=== PATIENT | male | born 1965 | race Caucasian/White ===

== ENCOUNTER 2019-05-04 08:42 | Emergency (ER) | payer SELFPAY ==
[2019-05-04 08:44] VITALS: BP 166/105; PULSE 84; RESP 18; TEMP 36.4; O2SAT 97
--- NOTE | 2019-05-04 08:44 | ED.GENADUL_ITS ---
Discharge Plan Disposition Patient Disposition: HOME Condition: Good Discharge Details Chief Complaint: EyeProblem Clinical Impression: Abrasion, corneal Primary Care Provider: [facility] ED Provider: Argelia Coker Home Meds and New Rx's Prescriptions: Continued lisinopril 10 mg Tablet 10 mg PO DAILY RF: 0 Discharge Instructions Instructions: Erythromycin (Into the eye), Corneal Abrasion (ED) Additional Instructions: No foreign body was seen in your eye today. However, you do have corneal abrasion to the right side of your pupil. Please apply the erythromycin ointment as was instructed by nursing staff 4 times daily for the next 5 days. Please follow-up with local local director hris in the next 2 days for reevaluation. If you develop pain, change in vision, discharge or other new/worsening symptoms please seek care urgently once again. Medical Decision Making Patient is a 53-year-old male presenting today with chief complaint of left eye pain. Reports that prior to arrival he was cutting a metal pipe and feels that he got a foreign body into the left eye. States that he immediately washed the eye and believes he may have gotten a foreign body out continues to have mild foreign body sensation. Reports that his tetanus is not up-to-date. Denies any change in his vision. Does not wear contact lenses or corrective lenses. Does not have a routine director hris. Patient lives in [place]. On exam, patient has mild injection to the left eye. Fluorescein was used after everting the eyelids. Patient was examined with slit lamp. Patient has a 4 mm vertical corneal abrasion just to the right of the pupil. However, when are not dilated, it does not cross over into the pupil. No foreign body was noted. Remaining exam is normal. Patient was given first dose of erythromycin ointment and was instructed on how to apply this by nursing staff. He was given strict return precautions. Patient does not live in the area, he will call a local director hris . We discussed signs symptoms of infection when to seek care urgently once again. All of his questions and concerns were addressed and he is in agreement this plan. Tetanus was updated today. HPI General Mode of arrival: ambulatory . Date/Time Provider Initiated Documentation: 05/04/19 08:44 . Limitations to Documentation: no limitations . Information obtained by: patient and RN notes reviewed . History of Present Illness 53 year old M presents to the emergency department with the chief complaint of Foreign body left eye, described as mild (Reports the pain is largely resolved), Quality is described as burning, and is localized to the eyes. Patient reports no radiation. Patient started experiencing this minute(s) and it has been constant. No relieving factors improve symptom(s), No exacerbating factors reported . Patient notes no other symptoms.. Patient did receive the following treatments prior to arrival, none Related Data Home Medications Medication Instructions Recorded Confirmed lisinopril 10 mg PO DAILY 05/04/19 05/04/19 Allergies Allergy/AdvReac Type Severity Reaction Status Date / Time No Known Allergies Allergy Unverified 05/04/19 08:48 Review of Systems Constitutional Constitutional: Reports as per HPI, Denies chills, Denies fatigue, Denies fever(s) and Denies headache(s) Eyes Eyes: Reports as per HPI ENT Ears, Nose, Mouth, and Throat: Denies headache(s) Cardiovascular Cardiovascular: Reports as per HPI, Denies chest pain and Denies lightheadedness Respiratory Respiratory: Denies cough Integumentary/Breasts Skin/Breast: Reports as per HPI, Denies rash, Denies skin pain and Denies skin swelling Neurologic Neurologic: Denies headache(s) and Denies radicular pain Endocrine Endocrine: Denies fatigue [facility], [facility] Medical History Hypertension (Chronic) Social History Smoking/Tobacco Use Status: Never Alcohol Intake: current Alcohol Intake frequency: a few times a month Drug use: Never Substance use type: does not use Do you feel safe at home: Yes Do you feel safe in your relationship?: Yes Exam Const General: cooperative, healthy appearing, comfortable, no acute distress, well developed and well groomed Nutritional Appearance: average body habitus and well nourished Orientation: alert, awake and oriented x3 HENMT Head: normal to inspection, normocephalic and atraumatic Ears: hearing grossly normal bilaterally and external ears normal General nose exam: external nose normal and nares normal Face and sinus: normal facial exam and face symmetric Mouth: oral mucosae normal, lip normal and moist mucous membranes Eyes Visual Wray: normal visual wrya by confrontation Alignment and Position: alignment normal and position normal Periorbital: periorbital findings normal Conjunctivae: conjunctivae normal Cornea: corneas abnormal on the left fluorescein used and abrasion central Pupils: PERRL and normal by confrontation EOM: EOM intact bilaterally Resp Effort & Inspection: normal respiratory effort, able to speak in complete sentences and no respiratory distress Skin General skin exam: no rashes or lesions noted Neuro General: alert, awake and oriented x3 Cranial Nerves: CN's II-XI intact bilaterally Cognition: normal cognition Speech: speech normal Gait: normal gait Psych Appearance: grossly normal and well kempt Mental Status: mental status grossly normal Speech and Movement: speech and movement normal
[2019-05-04] MEDS: Fluorescein STRIPS 100/BOX 1 MG OP (08:50)
[2019-05-04] MEDS: Tetracaine 0.5% 4 ML BTL OP (08:50)
[2019-05-04] MEDS: Erythromycin Ophth Oint 3.5 GM TUBE OS (09:09)
== END 2019-05-04 09:07 | disposition home or self-care (01) ==
PROVIDERS: Emergency Provider Physician Assistant
DX: S05.02XA Injury of conjunctiva and corneal abrasion without foreign body, left eye, initial encounter (principal); T15.02XA Foreign body in cornea, left eye, initial encounter; W20.8XXA Other cause of strike by thrown, projected or falling object, initial encounter; I10 Essential (primary) hypertension
CPT/HCPCS: 90471; 99284; 99283